=== PATIENT | female | born 1975 ===

== ENCOUNTER 2020-08-06 16:38 | Emergency (ER) | payer MEDICAID ==
[~2020-08-06] VITALS: Ht 152.4 cm; Wt 61.7 kg
[2020-08-06] MEDS ORDERED: DIPHENHYDRAMINE 50 MG/ML, 1ML ONE (17:28)
[2020-08-06] MEDS ORDERED: SUMATRIPTAN 6MG/0.5ML SQ ONE ×2 (17:28→17:30)
[2020-08-06] MEDS ORDERED: PROCHLORPERAZINE 5 MG/ML, 2ML ONE (17:28)
[2020-08-06] MEDS ORDERED: KETOROLAC 30 MG/1 ML ONE (17:28)
[2020-08-06] MEDS ORDERED: DIPHENHYDRAMINE 50 MG/ML, 1ML IVPush ONE (17:30)
[2020-08-06] MEDS ORDERED: PROCHLORPERAZINE 5 MG/ML, 2ML IVPush ONE (17:30)
[2020-08-06] MEDS ORDERED: KETOROLAC 30 MG/1 ML IVPush ONE (17:30)
[2020-08-06] MEDS ORDERED: SODIUM CHLORIDE FLUSH 10ML SYR IVF ONE (17:30)
[2020-08-06 17:37] VITALS: BP 175/120
--- NOTE | 2020-08-06 17:38 | NUR ---
CC OF HEADACHE FOR 2 DAYS AND NAUSEA AND HIGH BP. PT STATES SHE HAS A HX OF MIGRAINES. PT REQUESTING ALL LIGHTS IN ROOM BE TURNED OFF AND IS WEARING SUNGLASSES. DENES TAKING ANY BP MEDS AT THIS TIME.
== END 2020-08-06 18:35 | disposition home or self-care (01) ==
LOC: ED 17:00
DX: G43.109 Migraine with aura, not intractable, without status migrainosus (principal); I10 Essential (primary) hypertension; F17.210 Nicotine dependence, cigarettes, uncomplicated
CPT/HCPCS: 96372; 96374; 96375; 99284; 99406; J0780; J1200; J1885; J3030